=== PATIENT | male | born 1965 | race Caucasian/White ===

== ENCOUNTER 2017-02-22 10:09 | Inpatient (IN) | payer OTHER ==
--- NOTE | ~2017-02-22 | PN ---
Unit #: [id number] #: [id number] Patient: PERCY LOVE [id number] [facility] [address] [place] [address] [id number] I MR#: [id number] NAME: PERCY LOVE ROOM: P204 Age: 51 Sex: M Admission Date: 02/22/2017 : 1965 Attending Physician: Samuel Messina M.D. Admitting Physician: Samuel Messina M.D. Primary Care Physician: Primary Care Physician Sherri ISABEL NOTES DATE February 23, 2017 DISCUSSION Mr. Love is a 51-year-old white male, with alcohol dependence, who was seen today and chart was reviewed and the case was discussed with the staff. He has been anxious, withdrawn, and rather seclusive to himself. Meanwhile, he has been cooperative with the treatment recommendations. He has been taking the medications and he has been tolerating them well. MENTAL STATUS EXAMINATION Middle-aged white male, who was casually dressed with fair personal hygiene and appears to be in no acute distress or discomfort. He was awake and alert with intact orientation. His mood is anxious with a congruent affect. He denies any suicidal or homicidal ideations. His insight and judgment remain slightly impaired. TREATMENT PLAN 1. We will continue him on his current treatment protocol, and will monitor his response to the medications, and make further adjustments as needed. 2. We will continue to followup. Dictated by... Shyam Perla/koby TD: 02/24/2017 09:52 JOB #: [id number] Unit #: [id number] #: [id number] Patient: PERCY LOVE NEHA PROGRESS NOTES Page 1 of 1 X Samuel Messina MD X PROGRESS NOTE
--- NOTE | ~2017-02-22 | PN ---
Unit #: [id number] #: [id number] Patient: PERCY LOVE [id number] [facility] [address] [place] [address] [id number] I MR#: [id number] NAME: PERCY LOVE ROOM: P204 Age: 51 Sex: M Admission Date: 02/22/2017 : 1965 Attending Physician: Samuel Messina M.D. Admitting Physician: Samuel Messina M.D. Primary Care Physician: Primary Care Physician Sherri ISABEL NOTES DATE February 27, 2017 DISCUSSION Mr. Love is a 51-year-old white male, who was seen today and chart was reviewed and the case was discussed with the staff. He has been anxious, withdrawn, but has been seclusive to himself and he has been taking the medications and has been tolerating them fairly well with no reported side effects. MENTAL STATUS EXAMINATION Middle-aged white male, who was casually dressed with fair personal hygiene and appears to be in no acute distress or discomfort. He was awake and alert on interaction with intact orientation. His mood is anxious with a congruent affect. He denies any suicidal or homicidal ideations. His insight and judgment remain slightly impaired. TREATMENT PLAN 1. We will continue him on his current medications and treatment protocol, and will monitor his response to the medications, and make further adjustments as needed. 2. We will continue to followup. Dictated by... Shyam Perla/koby TD: 02/28/2017 15:02 JOB #: [id number] Unit #: [id number] #: [id number] Patient: PERCY LOVE PROGRESS NOTES Page 1 of 1 X Samuel Messina MD PROGRESS NOTE
--- NOTE | ~2017-02-22 | PA ---
Unit #: [id number] #: [id number] [facility]: [facility]INSON [id number] [facility] [address] [place] [address] [id number] I MR#: [id number] NAME: PERCY VINSON ROOM: [facility] Age: 51 Sex: M Admission Date: 02/22/2017 : 1965 Date of Assessment: 02/22/2017 Attending Physician: Samuel Messina M.D. Admitting Physician: Samuel Messina M.D. Primary Care Physician: Primary Care Physician No PSYCHIATRIC ASSESSMENT DATE OF SERVICE 02/22/2017. IDENTIFYING DATA Mr. Vinson is a 51-year-old, single, white male, who is currently active under my care in the intensive outpatient treatment program and presented to the outpatient clinic this morning stating that he relapsed the night before and has been drinking regularly and heavily and it appears that she might have been sneaking and drinking before that and has not been forthcoming to us and has been struggling to achieve any sobriety and reports that he has been drinking 4 to 5 bottles of cooking wine daily and had a CIWA score of 13 indicating significant withdrawal symptoms and was seen to be very frustrated, agitated, irritable with his relapse and states that he has been feeling suicidal thoughts and he was seen to be a significant danger to himself and as such, recommendation for the patient to be stepped up to the inpatient level was made and the patient was transferred to us. SUBSTANCE ABUSE HISTORY The patient reports history of alcohol dependence, but denies any other substance abuse issues. PAST PSYCHIATRIC HISTORY The patient has had history of [facility] [place] [facility] [facility] and is currently active in the outpatient treatment program. Review of the medical records indicate that he has been on Vistaril and doxepin. PAST MEDICAL HISTORY The patient's medical history is significant for carpal tunnel syndrome and arthritis. ALLERGIES Demerol, codeine, lisinopril, and lovastatin. PERSONAL AND SOCIAL HISTORY A 51-year-old white male, who reports that he is single, unemployed, and lives by himself and has fairly decent social support system from his family. MENTAL STATUS EXAMINATION Middle-aged white male, who was casually dressed with a fair personal hygiene, appears to be in no acute distress or discomfort. He was awake and alert with impaired attention and concentration. His mood was anxious Unit #: [id number] #: [id number] Patient: PERCY VINSON and depressed with a congruent affect. His speech was slow and restricted in content. His thought processes were disorganized with some looseness of associations and suicidal ideations. His insight and judgment remain significantly impaired. DIAGNOSTIC IMPRESSION Psychiatric: Major depressive disorder, recurrent, moderate, without psychotic features; alcohol dependence, moderate and acute withdrawals. Medical: Carpal tunnel syndrome and arthritis. Stressors: Moderate psychosocial stressors. TREATMENT PLAN 1. The patient has presented with a history of substance abuse and mood disorder, and has been decompensating and will need inpatient hospitalization for detoxification, safety, and stabilization. We will start him back on his home medications. We will adjust the medications and monitor response. 2. Supportive therapy was provided to the patient. 3. Safe, structured, and nourishing environment will be reported. ESTIMATED LENGTH OF STAY 5 to 7 days. ABILITY TO HELP SELF Limited. WILLINGNESS TO HELP SELF The patient appears to be willing to help self. STRENGTHS 1. Communicative. 2. Cooperative. PROBLEM LIST 1. Chronic dysphoric symptoms. 2. Chronic chemical dependency. 3. Poor social support system. DISCHARGE CRITERIA This will be contingent upon the patient's ability to show resolution of his depression and anxiety and his ability to stay safe to himself, particularly after discharge from the hospital. Dictated by... Samuel Messina M.D. LETICIA/ankit TD: 02/23/2017 23:23 JOB #: [id number] Unit #: [id number] #: [id number] Patient: PERCY VINSON PSYCHIATRIC ASSESSMENT Page 1 of 1 X Samuel Messina MD X PSYCHIATRIC ASSESSMENT
--- NOTE | ~2017-02-22 | PN ---
Unit #: [id number] #: [id number] Patient: PERCY LOVE [id number] [facility] [address] [place] [address] [id number] I MR#: [id number] NAME: PERCY LOVE ROOM: P204 Age: 51 Sex: M Admission Date: 02/22/2017 : 1965 Attending Physician: Samuel Messina M.D. Admitting Physician: Samuel Messina M.D. Primary Care Physician: Primary Care Physician Sherri SOLOMON PROGRESS NOTES DATE 02/26/2017 DISCUSSION Mr. Love is a 51-year-old, white male who was seen today and chart was reviewed and case was discussed with the staff. He has been anxious, withdrawn and rather seclusive to himself. Meanwhile, he has been cooperative with the treatment recommendations. He has been taking the medication and tolerating them fairly well. MENTAL STATUS EXAM Middle-aged white male who was casually dressed with fair personal hygiene, appears to be in no acute distress or discomfort. He was awake and alert with intact orientation. His mood was anxious and depressed with congruent affect. His speech was slow and goal directed. He reports having suicidal ideation but denies any intent or plan. His insight and judgement remains significantly impaired. TREATMENT PLAN 1. We will continue him on his current medications and treatment protocol. We will monitor his response to the medication and make further adjustments as needed. 2. We will continue to follow up. Dictated by... Shyam Perla/nilsa TD: 02/28/2017 02:51 JOB #: [id number] Unit #: [id number] #: [id number] Patient: PERCY LOVE PROGRESS NOTES Page 1 of 1 X Samuel Messina MD PROGRESS NOTE
--- NOTE | ~2017-02-22 | PN ---
Unit #: [id number] #: [id number] Patient: PERCY LOVE [id number] [facility] [address] [place] [address] [id number] MR#: [id number] NAME: PERCY LOVE ROOM: P204 Age: 51 Sex: M Admission Date: 02/22/2017 : 1965 Attending Physician: Samuel Messina M.D. Admitting Physician: Samuel Messina M.D. Primary Care Physician: Primary Care Physician Sherri ISABEL NOTES DATE February 28, 2017 DISCUSSION Mr. Love is a 51-year-old white male, who was seen today and chart was reviewed and the case was discussed with the staff. He has been anxious, withdrawn, and rather seclusive to himself. Meanwhile, he has been cooperative with the treatment recommendations and he has been taking the medications and tolerating them fairly well. MENTAL STATUS EXAMINATION Middle-aged white male, who was casually dressed with fair personal hygiene and appears to be in no acute distress or discomfort. He was awake and alert on interaction with intact orientation. His mood is anxious with a congruent affect. He denies any suicidal or homicidal ideations. His insight and judgment remain slightly impaired. TREATMENT PLAN We will continue him on his current medications and treatment protocol, and will monitor his response to the medications, and make further adjustments as needed. Dictated by... Shyam Perla/koby TD: 03/01/2017 12:17 JOB #: [id number] [facility] PROGRESS NOTES Page 1 of 1 X Samuel Messina MD PROGRESS NOTE
--- NOTE | ~2017-02-22 | PN ---
Unit #: [id number] #: [id number] Patient: PERCY VNISON [id number] [facility] [address] [place] [address] [id number] I MR#: [id number] NAME: PERCY VINSON ROOM: P204 Age: 51 Sex: M Admission Date: 02/22/2017 : 1965 Attending Physician: Samuel Messina M.D. Admitting Physician: Samuel Messina M.D. Primary Care Physician: Primary Care Physician Sherri SOLOMON PROGRESS NOTES DATE OF SERVICE 02/23/2017 DISCUSSION Mr. Vinson is a 51-year-old white male who was seen today. Chart was reviewed and case was discussed with the staff. He has been anxious, withdrawn, and rather seclusive to himself. Meanwhile, he has been cooperative with treatment recommendations and has been taking the medications and tolerating them fairly well. MENTAL STATUS EXAMINATION Middle-aged white male who is casually dressed with fair personal hygiene, appears to be in no acute distress or discomfort. He was awake and alert with impaired attention and concentration. His mood is anxious with congruent affect. He denies any suicidal or homicidal ideations. His insight and judgment remain slightly impaired. TREATMENT PLAN 1. We will continue him on his current medications and treatment protocol. We will monitor response to the medications and make further adjustments as needed. 2. We will continue to follow up. Dictated by... Samuel Messina M.D. IAA/bzg TD: 02/24/2017 12:57 JOB #: [id number] [facility] PROGRESS NOTES Page 1 of 1 X Samuel Messina MD PROGRESS NOTE
--- NOTE | ~2017-02-22 | HP ---
Unit #: [id number] #: [id number] Patient: ZAKI LOVE [id number] [place] [address] [id number] MR#: [id number] NAME: ZAKI LOVE ROOM: P204 Age: 51 Sex: M Admission Date: 02/22/2017 : 1965 Attending Physician: Samuel Messina M.D. Admitting Physician: Samuel Messina M.D. Primary Care Physician: Primary Care Physician No HISTORY AND PHYSICAL HISTORY OF PRESENT ILLNESS Zaki is a 51 year old admitted to [address] [place] [address] because of his abuse of alcohol. PAST MEDICAL HISTORY 1. Long history of alcohol abuse. 2. History of withdrawal seizures. 3. Obesity. 4. Hyperlipidemia. 5. High blood pressure. PAST SURGICAL HISTORY 1. Bilateral inguinal hernia repairs. 2. Cleft palate repair. 3. Bilateral carpal tunnel release. ALLERGIES Demerol, codeine, lisinopril, lovastatin. SOCIAL HISTORY He does not smoke. Drinks at least a pint, sometimes a fifth of liquor on a daily basis. Denies illicit drug use. FAMILY HISTORY Medically noncontributory. REVIEW OF SYSTEMS CONSTITUTIONAL: No fever or chills. HEENT: Denies any sore throat, ear pain or runny nose. CARDIOVASCULAR: Denies chest pain, irregular heart rhythm or palpitations. CHEST: Denies shortness of breath or cough. No hemoptysis. GASTROINTESTINAL: Denies nausea, vomiting, diarrhea or chronic constipation. ENDOCRINE: Denies history of increased thirst or urination. No recent significant weight loss or gain. GENITOURINARY: Denies dysuria, frequency, or hematuria. SKIN: Denies any rashes. HEMATOLOGIC: Denies history of increased bleeding or bruising. MUSCULOSKELETAL: Denies any hot, swollen joints. No generalized muscle pain. NEUROLOGIC: Denies problems with vision or speech. No frequent, severe headaches. No numbness, tingling or weakness in any extremities. Denies loss of bladder or bowel control. Unit #: [id number] #: [id number] Patient: ZAKI LOVE CURRENT MEDICATIONS Detox protocol. PHYSICAL EXAMINATION GENERAL: Alert, obese, in no apparent distress. VITAL SIGNS: Blood pressure 134/98, heart rate 80, respirations 16, temperature 98.6. WEIGHT: 161. HEIGHT: 5 feet 3 inches. SKIN: Warm and dry without rash or lesion. HEENT: Normocephalic. TMs not viewed. Oral and nasal passages clear. Conjunctivae clear. PERRLA. EOMs intact. NECK: Supple without lymphadenopathy or thyromegaly. HEART: Regular rate and rhythm without murmur. LUNGS: Clear. ABDOMEN: Soft, nontender. : Not done. EXTREMITIES: No evidence of cyanosis, clubbing or edema. Moves all without focal deficit. NEUROLOGICAL: Grossly within normal limits. Cranial Nerves: II: Visual garcia are intact. III, IV AND : Extraocular movements are intact. Pupils are equal, round and reactive to light. V: Facial sensation is grossly normal. VII: Facial movements and expression are normal. VIII: Auditory acuity grossly intact. IX, X: Uvula is midline. Phonation is normal. XI: Patient shrugs shoulders and turns head normally. XII: Tongue protrudes in the midline. Sensory and Motor Function: Sensory and motor sensation is grossly normal. Motor: moves all extremities well. Coordination: Gait is normal. Deep Tendon Reflexes: Intact. IMPRESSION 1. Psychiatric admission. 2. History of alcohol abuse. 3. High blood pressure. He has not been treated in many years. He tells us that his blood pressure will return back to normal limits after his detox. RECOMMENDATIONS PSYCHIATRIC: Per psychiatrist. MEDICAL: 1. See no contraindication to participate in facility's activities. 2. Detox per protocol. 3. Monitor blood pressure q. shift. MEDICAL PROGNOSIS Good. MEDICAL CONDITION Stable. Dictated by... Candelaria Brown-Kathy. for Echo Carrillo M.D. Unit #: [id number] #: [id number] Patient: ZAKI LOVECARLOS MANUEL/dzh TD: 02/22/2017 15:50 JOB #: [id number] HISTORY AND PHYSICAL Page 1 of 1 X Toña Malave HISTORY AND PHYSICAL
--- NOTE | ~2017-02-22 | PN ---
Unit #: [id number] #: [id number] Patient: EPRCY LOVE [id number] [facility] [address] [place] [address] [id number] I MR#: [id number] NAME: PERCY LOVE ROOM: P204 Age: 51 Sex: M Admission Date: 02/22/2017 : 1965 Attending Physician: Samuel Messina M.D. Admitting Physician: Samuel Messina M.D. Primary Care Physician: Primary Care Physician Sherri SOLOMON PROGRESS NOTES DATE 02/25/2017 DISCUSSION Mr. Love is a 51-year-old white male with mood disorder . Chart was reviewed and discussed with the staff. Anxious, withdrawn and has been complaining of persistent depressive symptoms and feelings of hopelessness and suicidal ideation. However, he has been very reluctant about medications in the past and antidepressant was discussed and he was still fairly willing though he was stating that he will consider and think about it. MENTAL STATUS EXAMINATION Middle-aged white male who was casually dressed with fair personal hygiene and appears to be in no acute distress or discomfort. He was awake and alert with intact orientation. His mood was anxious with congruent affect. He denies any suicidal or homicidal ideation. His insight and judgement remains slightly impaired. TREATMENT PLAN 1. Will continue him on his current treatment protocol. Will monitor his response and make further adjustments as needed. Dictated by... Shyam Perla/matt TD: 02/25/2017 18:26 JOB #: [id number] Unit #: [id number] #: [id number] Patient: PERCY LOVE EUGENIODEEP PROGRESS NOTES Page 1 of 1 X Samuel Messina MD PROGRESS NOTE
--- NOTE | ~2017-02-22 | DS ---
Unit #: [id number] #: [id number] Patient: [facility]INSON [id number] [facility] [address] [place] [address] [id number] MR#: [id number] NAME: PERCY VINSON ROOM: [facility] Age: 51 Sex: M Admission Date: 02/22/2017 : 1965 Discharge Date: 03/01/2017 Attending Physician: Samuel Messina M.D. Primary Care Physician: Primary Care Physician No DISCHARGE SUMMARY IDENTIFYING DATA Mr. Vinson is a 51-year-old single white male, who is a resident of [place], [place], and was stepped up to the inpatient unit for the intensive outpatient treatment program. DISCHARGE DIAGNOSES Psychiatric: Major depressive disorder, recurrent, moderate, without psychotic features; alcohol dependence, moderate in acute withdrawals. Medical: Arthritis, carpal tunnel syndrome. Stressors: Moderate psychosocial stressors. HISTORY OF PRESENT ILLNESS Please see initial psychiatric evaluation for details. PAST PSYCHIATRIC HISTORY Please see initial psychiatric evaluation for details. PAST MEDICAL HISTORY Please see initial psychiatric evaluation for details. HOSPITAL COURSE The patient was admitted to the adult psychiatric and chemical dependency unit at [facility] and was oriented to the hospital environment. Routine p.r.n. medications were initiated, and he was started back on his home medications and medications were adjusted and was closely monitored. He was taking the medications regularly and was tolerating them fairly well and was able to come out of the detox without any complications and as such, it was decided that he will be discharged home and will continue treatment on an outpatient basis. DISCHARGE MEDICATIONS Doxepin 50 mg at bedtime for sleep. DISCHARGE CONDITION Stable. PROGNOSIS Fair. Dictated by... Samuel Messina M.D. Unit #: [id number] #: [id number] Patient: PERCY VINSON IAA/modl TD: 03/01/2017 07:15 JOB #: [id number] DISCHARGE SUMMARY Page 1 of 1 X Samuel Messina MD X DISCHARGE SUMMARY
[2017-02-23 09:47] LABS: URINE APPEARANCE CLEAR; URINE BILIRUBIN NEG (NEG); URINE BLOOD NEG (NEG); URINE COLOR DK YELLOW; URINE GLUCOSE NEG (NEG); URINE KETONE NEG (NEG); URINE LEUKOCYTE ESTERASE NEG (NEG); URINE NITRATE NEG (NEG); URINE PROTEIN NEG (NEG); URINE SPECIFIC GRAVITY 1.016 (1.003-1.035); URINE UROBILINOGEN 0.2 MG/DL (NEG)
[2017-02-23 09:48] LABS: BASOPHIL# 0.1 X10e3 (0-0.3); BASOPHIL% 0.7 % (0-2.5); EOSINOPHIL# 0.2 X10e3 (0-0.7); EOSINOPHIL% 2.4 % (0.0-7.0); HEMATOCRIT 48.9 % (38.0-50.0); HEMOGLOBIN 16.3 gm/dL (13.0-16.0); LYMPHOCYTE# 2.8 X10e3 (1.0-3.5); LYMPHOCYTE% 28.5 % (17.0-45.0); MEAN CORPUSCULAR HEMOGLOBIN 28.7 PG (28-34); MEAN CORPUSCULAR HGB CONC 33.3 g/dL (30-36); MONOCYTE# 0.8 X10e3 (0-1.0); MONOCYTE% 7.9 % (3.0-12.0); NEUTROPHIL% 60.5 % (40-75); PLATELET COUNT 367 X10e3 (140-420); RED BLOOD COUNT 5.69 X10e (3.90-5.60); RED CELL DISTRIBUTION WIDTH 14.3 % (11.0-15.5); WHITE BLOOD COUNT 9.9 X10e3 (4.0-10.5)
[2017-02-23 09:50] LABS: DIFF IND NO
[2017-02-23 10:05] LABS: ALBUMIN SERUM 3.9 g/dL (3.5-5.0); BUN/CREATININE RATIO 10.9; CALCIUM SERUM 8.9 mg/dL (8.4-10.2); CREATININE SERUM 1.1 mg/dL (0.6-1.4); GLOM FILT RATE Estimated 76.3 mL/min (>60); POTASSIUM 4.5 mmol/L (3.5-5.1); PROTEIN TOTAL SERUM 7.2 g/dL (6.0-8.3)
[2017-02-23 10:16] LABS: AMPHETAMINE NEG (NEG); BARBITURATES NEG (NEG); BENZODIAZEPINES POS (NEG); COCAINE NEG (NEG); MARIJUANA NEG (NEG); OPIATES NEG (NEG); TRICYCLIC ANTIDEPRESSANTS NEG (NEG); U METHADONE NEG (NEG)
== END 2017-03-01 10:20 | disposition home or self-care (01) | DRG 885 ==
LOC: P2S 10:09
PROVIDERS: Psychiatry & Neurology Psychiatry
DX: F33.1 Major depressive disorder, recurrent, moderate (principal); I10 Essential (primary) hypertension; F10.239 Alcohol dependence with withdrawal, unspecified; E66.9 Obesity, unspecified; E78.5 Hyperlipidemia, unspecified; Z88.5 Allergy status to narcotic agent; Z88.8 Allergy status to other drugs, medicaments and biological substances; M19.90 Unspecified osteoarthritis, unspecified site
CPT/HCPCS: 80053; 80307; 81003; 85025; 86592